=== PATIENT | male | born 1955 | race Caucasian/White ===

== ENCOUNTER 2022-09-12 10:39 | Outpatient (CLI) | payer MEDICARE, OTHER, SELFPAY ==
--- NOTE | 2022-09-12 11:30 | CRLHL7_ITS ---
For Patients: As a result of the Century Cures Act, medical imaging exams and procedure reports are released immediately into your electronic medical record. You may view this report before your referring provider. If you have questions, please contact your health care provider. Indication: secondary malignancy neoplasm bone, bilateral hip pain Technique: Pelvis and both hips 5 views Comparison: None Findings: Mild spurring at both hips with chondrocalcinosis. Symphysis pubis intact. Vascular calcifications. Degenerative changes L5-S1. Subtle increased density left femoral neck on the AP pelvic view measuring 1.7 cm. No pathologic fracture. Impression: Possible intraosseous lesion left femoral neck. No pathologic fracture. Mild degenerative changes with chondrocalcinosis. Dictated by Dominik Johnson MD @ 09/12/2022 12:07:44 PM (Electronically Signed)
== END 2022-09-12 10:40 | disposition home or self-care (01) ==
PROVIDERS: PCP Family Medicine; Visit Provider Internal Medicine
DX: C79.51 Secondary malignant neoplasm of bone (principal); M25.551 Pain in right hip; M25.552 Pain in left hip
CPT/HCPCS: 73521